=== PATIENT | female | born 1990 | race Caucasian/White ===

== ENCOUNTER → 2016-12-01 | Outpatient (CLI) | payer BC ==
[2015-02-07 11:00] VITALS: BP 113/72
--- NOTE | 2016-12-02 11:45 | RAD ---
HISTORY: Knee Pain. Study: Complete three-view series of the left knee joint. Comparison: None available. Findings: No acute fracture, subluxation, or dislocation is identified. There is mild medial compartment joint space loss which would imply a early degenerative change. The lateral radiograph fails to demonstra te a visible joint effusion. Patellofemoral compartment is unremarkable in appearance. No lytic or b one forming lesions are seen. No high-grade osteochondral defects are observed. No unexpected radiopa que foreign bodies are seen. There is no evidence for significant degenerative arthrosis. No focal suzy int erosions are seen, either. IMPRESSION: Mild medial knee compartment joint space height loss/early DJD. Reported By:
== END | disposition home or self-care (01) ==
LOC: RAD 16:52
PROVIDERS: ATTEND Nurse Practitioner Family
DX: M25.562 Pain in left knee (principal); M17.12 Unilateral primary osteoarthritis, left knee
CPT/HCPCS: 73564

== ENCOUNTER → 2017-03-01 | Outpatient (CLI) | payer BC ==
[2015-02-07 11:00] VITALS: BP 113/72
--- NOTE | 2017-03-01 09:36 | US ---
Examination: Abdominal ultrasound. Clinical History: Right upper quadrant pain, bloating. Technique: Real-time grayscale ultrasound was used to evaluate the upper abdomen. Comparison: 01/16/2015. Findings: The gallbladder is normal in appearance with no cholelithiasis, gallbladder wall thickening or perich olecystic fluid noted. The common bile duct measures 4 mm in diameter and is within normal limits. No intrahepatic biliary d uctal dilatation is noted. The liver is normal in echogenicity with no focal mass. The pancreas is unremarkable. The right kidney measures 8.3 cm in length and is normal in echogenicity with no focal mass, hydronep hrosis or nephrolithiasis noted. Impression: 1. Negative right upper quadrant abdominal ultrasound. Reported By:
== END ==
LOC: RAD 08:33
PROVIDERS: ATTEND Internal Medicine
DX: R10.11 Right upper quadrant pain (principal)
CPT/HCPCS: 76705

== ENCOUNTER 2017-03-04 15:50 | Emergency (ER) | payer BC ==
[2017-03-04 15:55] VITALS: BP 119/78; BMI 23.5
[2017-03-04] MEDS ORDERED: PHENERGAN INJ 25 MG IV ONE (16:13)
[2017-03-04] MEDS ORDERED: TORADOL 30 MG VIAL IVP ONE (16:13)
[2017-03-04] MEDS ORDERED: PHENERGAN INJ 25 MG ONE (16:21)
[2017-03-04] MEDS ORDERED: TORADOL 30 MG VIAL ONE (16:21)
[2017-03-04 16:35] LABS: BASOPHILS # (AUTO) 0.1 X10^3/uL (0.0-0.1); BASOPHILS % (AUTO) 0.8 % (0.2-1.0); EOSINOPHILS # (AUTO) 0.1 x10^3/uL (0.0-0.2); EOSINOPHILS % (AUTO) 0.9 % (0.9-2.9); HEMATOCRIT 36.8 % (36.0-47.0); HEMOGLOBIN 12.3 g/dL (12.0-16.0); LYMPHOCYTES # (AUTO) 2.6 X10^3/uL (1.3-2.9); LYMPHOCYTES % (AUTO) 22.6 % (21.0-51.0); MEAN CORPUSCULAR HEMOGLOBIN 28.9 pg (27.0-34.0); MEAN CORPUSCULAR HGB CONC 33.4 g/dL (33.0-35.0); MEAN CORPUSCULAR VOLUME 86.7 fL (80.0-100.0); MEAN PLATELET VOLUME 8.7 fL (7.4-11.0); MONOCYTES # (AUTO) 0.6 x10^3/uL (0.3-0.8); MONOCYTES % (AUTO) 5.6 % (0.0-13.0); NEUTROPHILS % (AUTO) 70.1 % (42.0-75.0); PLATELET COUNT 269 X10^3/uL (150.0-450.0); RED BLOOD COUNT 4.24 X10^6/uL (3.5-5.4); RED CELL DISTRIBUTION WIDTH 12.8 % (11.6-16.5); WHITE BLOOD COUNT 11.4 X10^3/uL (3.6-10.0)
[2017-03-04 17:00] LABS: BLOOD UREA NITROGEN 18 mg/dL (7-18); CALCIUM 9.3 mg/dL (8.5-10.1); CARBON DIOXIDE 28.5 mmol/L (21-32); CHLORIDE 101 mmol/L (98-107); COR NA(FOR HYPERGLY) 139 mmol/L (136-145); CREATININE 0.83 mg/dL (0.55-1.02); SODIUM 137 mmol/L (136-145); eGFR BLACK RACES > 60 (>60); eGFR NON BLACK RACES > 60 (>60)
[2017-03-04 18:02] LABS: AMYLASE 53 Units/L (25-115); LIPASE 178 Units/L (73-393)
--- NOTE | 2017-03-04 18:41 | DR.GENAD ---
HPI - PCP Primary Care Physician: jose - Complaint/Symptoms Chief Complaint Doctors Comments: Patient presents with headache of acute onset. She denies a history of trauma or fever. Additionallly patient c/o stomach pain that has been ongoing for a while. Denies history of colonic bowel disease or abdominal ulcers. Had vision checked three months ago. Chief Complaint:: patient stated she was working and had a very bad headache so bad she was vomited twice. 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 - Family History History of Family Medical Conditions: Yes Family Medical History: Diabetes Mellitus - Social History Does patient currently use any type of tobacco product: No Have you used tobacco products in the last 12 months: No Type of Tobacco Use: None Does any household member use tobacco: No Alcohol Use: None Do you use any recreational Drugs:: No Lives With: Family Lives Where: Home - infectious screening In the last 2 months have you had wt loss of >10#?: NO Have you had fever, night sweats or hemotysis?: No Have you traveled outside the country in the last 6 months?: No Isolation: Standard ROS - Review of Systems Constitutional: No Symptoms Reported Eyes: No Symptoms Reported ENTM: No Symptoms Reported Respiratoy: No Symptoms Reported Cardiovascular: No Symptoms Reported, Palpitations Gastrointestinal/Abdominal: No Symptoms Reported Genitourinary: No Symptoms Reported Neurological: No Symptoms Reported Musculoskeletal: No Symptoms Reported Integumentary: No Symptoms Reported Hematologic/Lymphatic: No Symptoms Reported Endocrine: No Symptoms Reported Psychiatric: No Symptoms Reported All Other Systems: Reviewed and Negative PE - Vital Signs Vitals: Temperature 98.9 F Pulse Rate 117 Respiratory Rate 18 Blood Pressure 119/78 O2 Sat by Pulse Oximetry 97 - General Limitations: No Limitations General Appearance: Alert, In No Apparent Distress - Head Head Exam: Normal Inspection, Atraumatic - Eyes Eye exam: Normal Appearance, PERRL, EOMI - ENT ENT Exam: Normal Exam External Ear Exam: Normal External Inspection TM/Canal Exam: Bilateral Normal Nose Exam: Normal Nose Exam Mouth Exam: Normal Inspection Throat Exam: Normal Inspection - Neck Neck Exam: Normal Inspection - Chest Chest Inspection: Normal Inspection - Respiratory Respiratory Exam: Normal Lung Sounds Bilat Respiratory Exam: Bilateral Clear to Auscultation - Cardiovascular Cardiovascular Exam: Regular Rate, Normal Rhythm - Abdominal Exam Abdominal Exam: Distention, Tenderness Abdominal Tenderness: Diffuse - Extremities Extremities Exam: Normal Inspection, Full ROM - Back Back Exam: Normal Inspection - Neurologic Neurological Exam: Alert, Oriented X3, CN II-XII Intact - Psychiatric Psychiatric Exam: Agitated Course - Reevaluation 1st: Improved ROR - Labs Reviewed Result Diagrams: 03/04/17 16:20 03/04/17 16:20 Laboratory: WBC 11.4 X10^3/uL (3.6-10.0) H 03/04/17 16:20 RBC 4.24 X10^6/uL (3.5-5.4) 03/04/17 16:20 Hgb 12.3 g/dL (12.0-16.0) 03/04/17 16:20 Hct 36.8 % (36.0-47.0) 03/04/17 16:20 MCV 86.7 fL (80.0-100.0) 03/04/17 16:20 MCH 28.9 pg (27.0-34.0) 03/04/17 16:20 MCHC 33.4 g/dL (33.0-35.0) 03/04/17 16:20 RDW 12.8 % (11.6-16.5) 03/04/17 16:20 Plt Count 269 X10^3/uL (150.0-450.0) 03/04/17 16:20 MPV 8.7 fL (7.4-11.0) 03/04/17 16:20 Neut % 70.1 % (42.0-75.0) 03/04/17 16:20 Lymph % 22.6 % (21.0-51.0) 03/04/17 16:20 [place] % 5.6 % (0.0-13.0) 03/04/17 16:20 Eos % 0.9 % (0.9-2.9) 03/04/17 16:20 Baso % 0.8 % (0.2-1.0) 03/04/17 16:20 Neut # 8.0 x10^3/uL (2.2-4.8) H 03/04/17 16:20 Lymph # 2.6 X10^3/uL (1.3-2.9) 03/04/17 16:20 [place] # 0.6 x10^3/uL (0.3-0.8) 03/04/17 16:20 Eos # 0.1 x10^3/uL (0.0-0.2) 03/04/17 16:20 Baso # 0.1 X10^3/uL (0.0-0.1) 03/04/17 16:20 Absolute Nucleated RBC 0.0 /100WBC 03/04/17 16:20 Sodium 137 mmol/L (136-145) 03/04/17 16:20 Corrected Sodium 139 mmol/L (136-145) 03/04/17 16:20 Potassium 4.1 mmol/L (3.5-5.1) 03/04/17 16:20 Chloride 101 mmol/L (98-107) 03/04/17 16:20 Carbon Dioxide 28.5 mmol/L (21-32) 03/04/17 16:20 BUN 18 mg/dL (7-18) 03/04/17 16:20 Creatinine 0.83 mg/dL (0.55-1.02) 03/04/17 16:20 Est GFR (MDRD) Af Amer > 60 (>60) 03/04/17 16:20 Est GFR (MDRD) Non-Af > 60 (>60) 03/04/17 16:20 Glucose 194 mg/dL (65-99) H 03/04/17 16:20 Calcium 9.3 mg/dL (8.5-10.1) 03/04/17 16:20 C-Reactive Protein 6.90 mg/L (0-3.0) H 03/04/17 16:20 Amylase 53 Units/L (25-115) 03/04/17 16:20 Lipase 178 Units/L (73-393) 03/04/17 16:20 Influenza Type A (PCR) Negative (NEGATIVE) 03/04/17 16:39 Influenza Type B (PCR) Negative (NEGATIVE) 03/04/17 16:39 - XRAY XRAY Interpreted by: Radiologist (Ct Sinus: negative, CT Abdo/pelv: negative) - Diagnosis Discharge Problem: Headache around the eyes Abdominal pain Qualifiers: Abdominal location: generalized Qualified Code(s): R10.84 - Generalized abdominal pain - Discharge Plan Condition: Stable - Follow ups/Referrals Follow ups/Referrals: MAMI DAVID [Primary Care Provider] - 3 days - Instructions
--- NOTE | 2017-03-04 19:22 | CT ---
HISTORY: Headache Study: CT of the sinuses Comparison: None Technique: Serial axial images were obtained through the sinuses without infusion of IV contrast. Cor onal sagittal reformatted images were also submitted. Findings: The frontal, ethmoid, maxillary, and sphenoid sinuses are well aerated without evidence of significan t mucosal thickening or air-fluid levels. The bony nasal septum is deviated slightly to the left. The ostiomeatal complexes appear to be patent bilaterally. IMPRESSION: Unremarkable sinus series. Reported By:
--- NOTE | 2017-03-04 20:23 | CT ---
CT abdomen and pelvis with contrast. Indication: Vomiting Comparison: None Technique: CT images of the abdomen and pelvis were obtained with IV contrast. No oral contrast was g iven. Automatic exposure control was utilized. Findings: The lung bases are essentially clear. No acute skeletal abnormality identified. The liver, gallbladder, spleen, stomach, duodenum, pancreas, adrenals, and kidneys are within normal limits. No significant bowel thickening or dilatation of the lower GI tract is observed. Normal appen lacey. Uterus and ovaries are noted. The urinary bladder and rectum are unremarkable. No free fluid or adenopathy identified. Impression: No acute process identified to explain patient's symptoms. Reported By:
== END 2017-03-04 21:44 | disposition home or self-care (01) ==
LOC: ER 15:57
DX: R51 Headache (principal); R10.84 Generalized abdominal pain
CPT/HCPCS: 36415; 70486; 74177; 80048; 82150; 83690; 85025; 86140; 87502; 96365; 96374; 96375; 99283; A4222; J1885; J2550

== ENCOUNTER 2017-03-29 10:52 | Inpatient (IN) | payer BC ==
[2017-03-29] MEDS ORDERED: SALINE 3% 15 ML NEB TX ONE (14:12)
[2017-03-29 14:13] LABS: BASOPHILS # (AUTO) 0.1 X10^3/uL (0.0-0.1); BASOPHILS % (AUTO) 0.8 % (0.2-1.0); EOSINOPHILS # (AUTO) 0.1 x10^3/uL (0.0-0.2); EOSINOPHILS % (AUTO) 1.7 % (0.9-2.9); HEMATOCRIT 36.7 % (36.0-47.0); HEMOGLOBIN 12.5 g/dL (12.0-16.0); LYMPHOCYTES # (AUTO) 2.8 X10^3/uL (1.3-2.9); MEAN CORPUSCULAR HEMOGLOBIN 29.2 pg (27.0-34.0); MEAN CORPUSCULAR HGB CONC 34.2 g/dL (33.0-35.0); MEAN CORPUSCULAR VOLUME 85.3 fL (80.0-100.0); MEAN PLATELET VOLUME 8.7 fL (7.4-11.0); MONOCYTES # (AUTO) 0.5 x10^3/uL (0.3-0.8); MONOCYTES % (AUTO) 5.7 % (0.0-13.0); NEUTROPHILS # (AUTO) 5.1 x10^3/uL (2.2-4.8); NEUTROPHILS % (AUTO) 58.8 % (42.0-75.0); PLATELET COUNT 309 X10^3/uL (150.0-450.0); RED CELL DISTRIBUTION WIDTH 12.7 % (11.6-16.5); WHITE BLOOD COUNT 8.6 X10^3/uL (3.6-10.0)
[2017-03-29] MEDS ORDERED: SALINE 3% 15 ML NEB TX NEB ONE (14:25)
--- NOTE | 2017-03-29 14:25 | RAD ---
Examination: Chest, PA and lateral views History: Bronchitis Comparison 10/29/2014 Findings: Continued normal heart size with clear lungs and pleural spaces. Impression: No change; no acute findings. Reported By:
[2017-03-29 14:27] LABS: ALANINE AMINOTRANSFERASE 23 Units/L (12-78); ALBUMIN 3.8 g/dL (3.4-5.0); ALKALINE PHOSPHATASE 126 Units/L (46-116); ASPARTATE AMINO TRANSFERASE 18 Units/L (15-37); BLOOD UREA NITROGEN 7 mg/dL (7-18); CALCIUM 9.2 mg/dL (8.5-10.1); CARBON DIOXIDE 27.8 mmol/L (21-32); CHLORIDE 104 mmol/L (98-107); COR NA(FOR HYPERGLY) 139 mmol/L (136-145); CREATININE 0.87 mg/dL (0.55-1.02); SODIUM 136 mmol/L (136-145); TOTAL PROTEIN 7.9 g/dL (6.4-8.2); eGFR BLACK RACES > 60 (>60); eGFR NON BLACK RACES > 60 (>60)
[2017-03-29] MEDS ORDERED: NS 1/2 1000 ML IV 1,000 ML IV ONE (14:40)
[2017-03-29] MEDS: NS 1/2 1000 ML IV 1,000 ML IV SCH (15:00)
[2017-03-29] MEDS: ZOSYN VIAL 4.5 GM 4.5 GM in NS 100 ML IV + SPIKE MINIBAG* 100 ML IV SCH ×2 (15:00→21:03)
[2017-03-29] MEDS: PROTONIX INJ 40 MG VIAL IVP SCH ×2 (15:00→21:01)
[2017-03-29 15:23] LABS: BILIRUBIN,URINE NEGATIVE (NEGATIVE); BLOOD/HEMOGLOBIN,URINE NEGATIVE (NEGATIVE); GLUCOSE, URINE 3+ (NEGATIVE); KETONES,URINE NEGATIVE (NEGATIVE); LEUKOCYTE ESTERASE ,URINE 1+ (NEGATIVE); NITRITES,URINE NEGATIVE (NEGATIVE); PROTEIN,URINE NEGATIVE (NEGATIVE); UROBILINOGEN,URINE NORMAL (NORMAL)
[2017-03-29 15:32] LABS: APPEARANCE,URINE CLEAR (CLEAR); BACTERIA,URINE NEGATIVE /HPF (NEGATIVE); COLOR,URINE YELLOW (YELLOW); RBC,URINE NONE SEEN /HPF (NEGATIVE); SQUAMOUS EPITHELIAL CELL,UR RARE /HPF (NEGATIVE)
[2017-03-29 16:04] VITALS: BMI 25.2
[2017-03-29] MEDS: ROBITUSSIN DM PO SCH ×2 (16:30→21:02)
[2017-03-29] MEDS: DUONEB 0.5 MG/3 MG NEB SCH ×2 (16:30→21:30)
[2017-03-29] MEDS: TYLENOL 325 MG TAB PO PRN ×2 (17:34→21:19)
--- NOTE | 2017-03-29 18:15 | DR.H&P ---
H&P - History & Physical for Day of: H&P Date: 03/29/17 - Chief Complaint Chief Complaint: cough, chest tightness, wheezing, fever - Allergies Allergies/Adverse Reactions: Allergies Allergy/AdvReac Type Severity Reaction Status Date / Time No Known Drug Allergies Allergy Verified 03/29/17 12:07 - History of Present Illness History of Present Illness: 26 WF DIRECT ADMIT FROM DR HERNANDEZ OFFICE WITH CO CONTINUED COUGH, CHEST TIGHTNESS AND WHEEZING EVEN AFTER TAKING ORAL ATBX AND BREATHING TREATMENTS. PT CO ABDOMINAL BLOATING AND NAUSEA. PT HAD PMH OF GERD, DM, HYPOTHYROID, ARTHRITIS. PLAN TO ADMIT FOR EVALUATION AND TREATEMENT OF ACUTE RESP ILLNESS, OBTAIN BLOOD AND SPUTUM CULTURES, IV ATBX AND RESP THERAPY. 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 - Family History Family Medical History: Diabetes Mellitus - Social History Does patient currently use any type of tobacco product: No Have you used tobacco products in the last 12 months: No Type of Tobacco Use: None Alcohol Use: None Drug Use: None - Medications Home Medications: Dicyclomine HCl [BENTYL CAP 10 MG *] 10 mg PO TID PRN 03/29/17 [History Confirmed 03/29/17] Levothyroxine Sodium 125 mcg PO DAILY 03/29/17 [History Confirmed 03/29/17] Linaclotide [Linzess] 145 mcg PO DAILY 03/29/17 [History Confirmed 03/29/17] Metformin HCl [GLUCOPHAGE 500 MG *] 500 mg PO BID 03/29/17 [History Confirmed ] Metoclopramide HCl 10 mg PO BID 03/29/17 [History Confirmed 03/29/17] Naproxen [Naproxen] 500 mg PO BID PRN 03/29/17 [History Confirmed 03/29/17] Pantoprazole Sodium 40 mg [PROTONIX 40 MG *] 40 mg PO BID 03/29/17 [History Confirmed 03/29/17] - Review of Systems Constitutional: Fever, Chills, Sweats Eyes: No Symptoms Reported ENT: No Symptoms Reported Respiratory: Cough, SOB with Excertion, Wheezing Cardiovascular: Palpitations Gastrointestinal: Nausea, Abdominal Pain Genitourinary: No Symptoms Reported Musculoskeletal: No Symptoms Reported Skin: No Symptoms Reported Neurological: No Symptoms Reported - Physical Exam Vital Signs: Temperature 98.0 F Pulse Rate [Right Radial] 103 Respiratory Rate 18 Blood Pressure [Left Arm] 111/68 Blood Pressure [Right Arm] 128/78 Blood Pressure 119/78 O2 Sat by Pulse Oximetry 99 Oriented: Normal Eyes: Normal Ear: Normal Nose: Normal Throat: Normal Respiratory: Rhonchi Throughout, RLL Diminished, LLL Diminished Cardiovascular: Tachycardia : Normal Auscultation: Bowel Sounds: Normal Tenderness: RUQ, Epigastric Skin: Normal Musculoskeletal: Normal Psychiatric: Anxiety Affect: Anxious Speech Pattern: Clear, Appropriate - Assessment/Plan (1) Acute bronchitis Status: Acute Plan: ADMIT, PNEUMONIA PROTOCOL. BLOOD AND SPUTUM CULTURES, FLU SWAB. IV ATBX , RESP THERAPY, STOOL STUDIES. ADMISSION LABS, CXR. RESUME HOME MEDS (2) Fever Status: Acute (3) Diabetes Status: Acute (4) Hypothyroid Status: Acute (5) Abdominal pain Status: Acute
[2017-03-29] MEDS: SNACK - Diabetic Appropriate PO SCH (20:00)
[2017-03-29] MEDS: REGLAN TAB 10 MG PO SCH (21:02)
[2017-03-29] MEDS: COLACE CAP 100 MG PO SCH ×2 (21:02)
[2017-03-29] MEDS: TUSSIONEX PENNKINETIC SUSP PO PRN (21:02)
[2017-03-29] MEDS: PULMICORT NEB TX 0.5 MG NEB SCH (21:30)
[2017-03-30] MEDS: DUONEB 0.5 MG/3 MG NEB SCH ×6 (00:40→21:20)
[2017-03-30] MEDS: NS 1/2 1000 ML IV 1,000 ML IV SCH ×3 (05:18→21:57)
[2017-03-30 06:06] LABS: ALANINE AMINOTRANSFERASE 24 Units/L (12-78); ALBUMIN 3.3 g/dL (3.4-5.0); ALKALINE PHOSPHATASE 93 Units/L (46-116); ASPARTATE AMINO TRANSFERASE 18 Units/L (15-37); BLOOD UREA NITROGEN 8 mg/dL (7-18); CALCIUM 8.2 mg/dL (8.5-10.1); CARBON DIOXIDE 28.4 mmol/L (21-32); CHLORIDE 103 mmol/L (98-107); COR CA(FOR HYPOALB) 8.8 mg/dL (8.5-10.1); COR NA(FOR HYPERGLY) 139 mmol/L (136-145); CREATININE 0.85 mg/dL (0.55-1.02); SODIUM 138 mmol/L (136-145); TOTAL PROTEIN 6.9 g/dL (6.4-8.2); eGFR BLACK RACES > 60 (>60); eGFR NON BLACK RACES > 60 (>60)
[2017-03-30 06:08] LABS: BASOPHILS # (AUTO) 0.1 X10^3/uL (0.0-0.1); BASOPHILS % (AUTO) 1.2 % (0.2-1.0); EOSINOPHILS # (AUTO) 0.2 x10^3/uL (0.0-0.2); EOSINOPHILS % (AUTO) 2.9 % (0.9-2.9); HEMATOCRIT 33.9 % (36.0-47.0); HEMOGLOBIN 11.5 g/dL (12.0-16.0); LYMPHOCYTES # (AUTO) 3.2 X10^3/uL (1.3-2.9); LYMPHOCYTES % (AUTO) 41.8 % (21.0-51.0); MEAN CORPUSCULAR HEMOGLOBIN 29.2 pg (27.0-34.0); MEAN CORPUSCULAR VOLUME 85.8 fL (80.0-100.0); MEAN PLATELET VOLUME 8.8 fL (7.4-11.0); MONOCYTES # (AUTO) 0.6 x10^3/uL (0.3-0.8); MONOCYTES % (AUTO) 7.6 % (0.0-13.0); NEUTROPHILS # (AUTO) 3.5 x10^3/uL (2.2-4.8); NEUTROPHILS % (AUTO) 46.5 % (42.0-75.0); PLATELET COUNT 260 X10^3/uL (150.0-450.0); RED BLOOD COUNT 3.95 X10^6/uL (3.5-5.4); RED CELL DISTRIBUTION WIDTH 12.8 % (11.6-16.5); WHITE BLOOD COUNT 7.6 X10^3/uL (3.6-10.0)
[2017-03-30] MEDS: ZOSYN VIAL 4.5 GM 4.5 GM in NS 100 ML IV + SPIKE MINIBAG* 100 ML IV SCH ×3 (06:16→21:55)
[2017-03-30] MEDS: ROBITUSSIN DM PO SCH ×4 (08:00→21:55)
[2017-03-30] MEDS: PROTONIX INJ 40 MG VIAL IVP SCH ×2 (08:00→21:55)
[2017-03-30] MEDS: TYLENOL 325 MG TAB PO PRN ×2 (08:00→15:55)
[2017-03-30] MEDS: SYNTHROID 125 mcg TAB PO SCH (08:01)
[2017-03-30] MEDS: REGLAN TAB 10 MG PO SCH ×2 (08:01→21:55)
[2017-03-30] MEDS: LEVAQUIN PREMIX IV 750 MG 750 MG/150 ML BAG IV SCH (08:03)
[2017-03-30 08:27] LABS: AMYLASE 40 Units/L (25-115); LIPASE 106 Units/L (73-393)
--- NOTE | 2017-03-30 08:48 | RAD ---
Indication: Pain Exam: Acute abdominal series. Technique: AP chest and supine upright views of the abdomen were obtained. Findings: The heart is normal. The pulmonary vessels are normal. The lungs are clear and the bones are intact. The gas pattern is unremarkable. No renal stones are seen. There is no free air. No abnormal calcific ations are seen . The bones are intact. There is moderate feces scattered in the colon. Impression: Mild constipation otherwise , unremarkable acute abdominal series. Reported By:
[2017-03-30] MEDS: PULMICORT NEB TX 0.5 MG NEB SCH ×2 (09:15→21:20)
[2017-03-30] MEDS: SOLU-Medrol 40 MG VIAL IVP SCH ×3 (11:10→21:56)
[2017-03-30] MEDS ORDERED: NS 1/2 1000 ML IV 1,000 ML IV ONE (13:32)
[2017-03-30] MEDS: HumuLIN R SUBCUT PRN ×2 (15:54→21:56)
[2017-03-30] MEDS: TUSSIONEX PENNKINETIC SUSP PO PRN (15:55)
[2017-03-30] MEDS: NORCO 5/325 MG TAB PO PRN (18:37)
[2017-03-30] MEDS: COLACE CAP 100 MG PO SCH (21:55)
[2017-03-30 22:42] LABS: STOOL FOR WBC POSITIVE (NEGATIVE)
[2017-03-30] MEDS: SNACK - Diabetic Appropriate PO SCH (23:40)
[2017-03-31] MEDS: DUONEB 0.5 MG/3 MG NEB SCH ×5 (01:47→22:26)
[2017-03-31] MEDS: ZOSYN VIAL 4.5 GM 4.5 GM in NS 100 ML IV + SPIKE MINIBAG* 100 ML IV SCH ×3 (06:15→21:57)
[2017-03-31] MEDS: SOLU-Medrol 40 MG VIAL IVP SCH (06:16)
[2017-03-31 06:18] LABS: BASOPHILS % (AUTO) 0.2 % (0.2-1.0); HEMATOCRIT 35.7 % (36.0-47.0); LYMPHOCYTES # (AUTO) 1.1 X10^3/uL (1.3-2.9); LYMPHOCYTES % (AUTO) 6.1 % (21.0-51.0); MEAN CORPUSCULAR HGB CONC 33.7 g/dL (33.0-35.0); MEAN CORPUSCULAR VOLUME 86.1 fL (80.0-100.0); MEAN PLATELET VOLUME 8.9 fL (7.4-11.0); MONOCYTES # (AUTO) 0.2 x10^3/uL (0.3-0.8); NEUTROPHILS # (AUTO) 16.5 x10^3/uL (2.2-4.8); NEUTROPHILS % (AUTO) 92.7 % (42.0-75.0); PLATELET COUNT 283 X10^3/uL (150.0-450.0); RED BLOOD COUNT 4.15 X10^6/uL (3.5-5.4); WHITE BLOOD COUNT 17.8 X10^3/uL (3.6-10.0)
[2017-03-31] MEDS: HumuLIN R SUBCUT PRN ×2 (06:19→12:34)
[2017-03-31 06:29] LABS: BAND NEUTROPHILS % 1 % (0-10); PLATELET MORPHOLOGY COMMENT NORMAL (NORMAL)
[2017-03-31 06:35] LABS: ALANINE AMINOTRANSFERASE 25 Units/L (12-78); ALBUMIN 3.7 g/dL (3.4-5.0); ALKALINE PHOSPHATASE 97 Units/L (46-116); ASPARTATE AMINO TRANSFERASE 12 Units/L (15-37); BLOOD UREA NITROGEN 10 mg/dL (7-18); CALCIUM 9.2 mg/dL (8.5-10.1); CARBON DIOXIDE 24.9 mmol/L (21-32); CHLORIDE 100 mmol/L (98-107); COR NA(FOR HYPERGLY) 141 mmol/L (136-145); CREATININE 0.97 mg/dL (0.55-1.02); SODIUM 136 mmol/L (136-145); TOTAL PROTEIN 7.9 g/dL (6.4-8.2); eGFR BLACK RACES > 60 (>60); eGFR NON BLACK RACES > 60 (>60)
[2017-03-31] MEDS: PULMICORT NEB TX 0.5 MG NEB SCH ×2 (09:08→22:26)
[2017-03-31] MEDS: PROTONIX INJ 40 MG VIAL IVP SCH ×2 (09:31→21:23)
[2017-03-31] MEDS: LEVAQUIN PREMIX IV 750 MG 750 MG/150 ML BAG IV SCH (09:31)
[2017-03-31] MEDS: REGLAN TAB 10 MG PO SCH ×2 (09:32→21:23)
[2017-03-31] MEDS: SYNTHROID 125 mcg TAB PO SCH (09:32)
[2017-03-31] MEDS: ROBITUSSIN DM PO SCH ×4 (09:32→21:22)
[2017-03-31] MEDS: NORCO 5/325 MG TAB PO PRN ×2 (10:00→18:12)
[2017-03-31] MEDS ORDERED: SUPRANE IN ONE (10:46)
[2017-03-31] MEDS ORDERED: VERSED ONE (10:46)
[2017-03-31] MEDS ORDERED: QUELICIN (OR ANECTINE) ONE (10:46)
[2017-03-31] MEDS ORDERED: ROBINUL ONE (10:46)
[2017-03-31] MEDS ORDERED: LTA KIT LIDOCAINE 4% ONE (10:46)
[2017-03-31] MEDS ORDERED: DIPRIVAN VIAL ONE (10:46)
[2017-03-31] MEDS ORDERED: NORCURON INJ 10 MG VIAL ONE (10:46)
[2017-03-31] MEDS ORDERED: XYLOCAINE 2 % (PLAIN) ONE (10:46)
[2017-03-31] MEDS ORDERED: ZOFRAN INJ 4 MG VIAL ONE (10:46)
[2017-03-31] MEDS ORDERED: NEOSTIGMINE INJ ONE (10:46)
--- NOTE | 2017-03-31 12:22 | NM ---
HISTORY: Right upper quadrant pain, nausea, vomiting and food intolerance. Study: Nuclear medicine HIDA scan with ejection fraction Comparison: None. Technique: Multiple scintigraphic images of the abdomen were obtained the intravenous administration of 5.3 mCi of technetium labeled Choletec. Following distention of the gallbladder with radiotracer, 8 oz of Ensure plus was administered orally . An estimated gallbladder ejection fraction was calculated based on the resulting physiologic respo nse. Findings: Homogeneous uptake of radiotracer is seen throughout the liver. The intrabiliary ductal system is ob served normally. The common hepatic and common bile duct are unremarkable with normal biliary-bowel transit. The gallbladder is observed to fill normally. After administration of Ensure, a gallbladder ejection fraction of 11.9% (normal > 35%) is observed. IMPRESSION: 1. Normal hepatobiliary imaging scan. 2. Abnormal gallbladder ejection fraction of 11.9%. Clinical correlation for cholecystitis versus ga llbladder dyskinesia is recommended. Reported By:
--- NOTE | 2017-03-31 13:07 | PCM.PROG ---
Progress Note - Progress Note for Day of Date: 03/30/17 - Subjective Subjective: patient is a 26-year-old white female who was a direct admit when they go with flulike illness, bronchitis spelled out patient treatment, upper abdominal pain with nausea and vomiting. Patient has been treated with IV antibiotics and respiratory therapy for upper respiratory illness. Patient does report improving cough however continues with nausea and upper abdominal pain. Patient has previously had a gallbladder ultrasound, plan to order a HIDA scan every morning and continue current medication regimen. - Past Medical Family Social History Past Med/Fam/Surg Hx: No changes since H&P Allergies: Allergies No Known Drug Allergies Allergy (Verified 03/29/17 12:07) - Review of Systems ROS: No change since H&P - Vital Signs and I&O's Vital Signs: Temperature 97.7 F Pulse Rate [Right Radial] 77 Pulse Rate 111 Respiratory Rate 20 Blood Pressure [Left Arm] 114/63 Blood Pressure [Right Arm] 128/78 Blood Pressure 119/78 O2 Sat by Pulse Oximetry 99 Intake and Output: Intake & Output 03/29/17 03/30/17 03/31/17 04/01/17 11:59 11:59 11:59 11:59 Intake Total 990 2435 Output Total 500 2600 Balance 490 -165 - Physical Exam Oriented: Normal Eyes: Normal Ear: Normal Nose: Normal Throat: Normal Cardiovascular: Tachycardia : Normal Auscultation: Bowel Sounds: Normal Tenderness: RUQ, Epigastric Skin: Normal Musculoskeletal: Normal Psychiatric: Anxiety Affect: Anxious Speech Pattern: Clear, Appropriate - Laboratory and Diagnostics Result Diagrams: 03/31/17 05:30 03/31/17 05:30 Labs: 03/30/17 21:20 Stool - Final Laboratory WBC 17.8 X10^3/uL (3.6-10.0) H D 03/31/17 05:30 RBC 4.15 X10^6/uL (3.5-5.4) 03/31/17 05:30 Hgb 12.0 g/dL (12.0-16.0) 03/31/17 05:30 Hct 35.7 % (36.0-47.0) L 03/31/17 05:30 MCV 86.1 fL (80.0-100.0) 03/31/17 05:30 MCH 29.0 pg (27.0-34.0) 03/31/17 05:30 MCHC 33.7 g/dL (33.0-35.0) 03/31/17 05:30 RDW 13.0 % (11.6-16.5) 03/31/17 05:30 Plt Count 283 X10^3/uL (150.0-450.0) 03/31/17 05:30 Plt Count Comment Adequate (ADEQUATE) 03/31/17 05:30 MPV 8.9 fL (7.4-11.0) 03/31/17 05:30 Neut % 92.7 % (42.0-75.0) H 03/31/17 05:30 Lymph % 6.1 % (21.0-51.0) L 03/31/17 05:30 [place] % 1.0 % (0.0-13.0) 03/31/17 05:30 Eos % 0.0 % (0.9-2.9) L 03/31/17 05:30 Baso % 0.2 % (0.2-1.0) 03/31/17 05:30 Neut # 16.5 x10^3/uL (2.2-4.8) H 03/31/17 05:30 Lymph # 1.1 X10^3/uL (1.3-2.9) L 03/31/17 05:30 [place] # 0.2 x10^3/uL (0.3-0.8) L 03/31/17 05:30 Eos # 0.0 x10^3/uL (0.0-0.2) 03/31/17 05:30 Baso # 0.0 X10^3/uL (0.0-0.1) 03/31/17 05:30 Absolute Nucleated RBC 0.0 /100WBC 03/31/17 05:30 Total Counted 100 03/31/17 05:30 Neutrophils % (Manual) 89 % (39-76) H 03/31/17 05:30 Band Neutrophils % 1 % (0-10) 03/31/17 05:30 Lymphocytes % (Manual) 7 % (13-43) L 03/31/17 05:30 Monocytes % (Manual) 3 % (4-9) L 03/31/17 05:30 Plt Morphology Comment Normal (NORMAL) 03/31/17 05:30 RBC Morphology Normal (NORMAL) 03/31/17 05:30 Sodium 136 mmol/L (136-145) 03/31/17 05:30 Corrected Sodium 141 mmol/L (136-145) 03/31/17 05:30 Potassium 4.4 mmol/L (3.5-5.1) 03/31/17 05:30 Chloride 100 mmol/L (98-107) 03/31/17 05:30 Carbon Dioxide 24.9 mmol/L (21-32) 03/31/17 05:30 BUN 10 mg/dL (7-18) 03/31/17 05:30 Creatinine 0.97 mg/dL (0.55-1.02) 03/31/17 05:30 Est GFR (MDRD) Af Amer > 60 (>60) 03/31/17 05:30 Est GFR (MDRD) Non-Af > 60 (>60) 03/31/17 05:30 Glucose 296 mg/dL (65-99) H 03/31/17 05:30 POC Glucose (mg/dL) 317 mg/dL (65-99) H 03/31/17 12:19 Calcium 9.2 mg/dL (8.5-10.1) 03/31/17 05:30 Corrected Calcium TNP 03/31/17 05:30 Total Bilirubin 0.30 mg/dL (0.2-1.0) 03/31/17 05:30 AST 12 Units/L (15-37) L 03/31/17 05:30 ALT 25 Units/L (12-78) 03/31/17 05:30 Alkaline Phosphatase 97 Units/L (46-116) 03/31/17 05:30 Total Protein 7.9 g/dL (6.4-8.2) 03/31/17 05:30 Albumin 3.7 g/dL (3.4-5.0) 03/31/17 05:30 Globulin 4.2 g/dL (2.5-4.5) 03/31/17 05:30 Albumin/Globulin Ratio 0.9 Ratio (1.1-2.1) L 03/31/17 05:30 Amylase 40 Units/L (25-115) 03/30/17 05:27 Lipase 106 Units/L (73-393) 03/30/17 05:27 Specimen Type Clean catch urine 03/29/17 15:12 Urine Color Yellow (YELLOW) 03/29/17 15:12 Urine Appearance Clear (CLEAR) 03/29/17 15:12 Urine pH 8.0 (5.0 - 8.0) 03/29/17 15:12 Ur Specific [place] 1.015 (1.000-1.030) 03/29/17 15:12 Urine Protein Negative (NEGATIVE) 03/29/17 15:12 Urine Glucose (UA) 3+ (NEGATIVE) 03/29/17 15:12 Urine Ketones Negative (NEGATIVE) 03/29/17 15:12 Urine Occult Blood Negative (NEGATIVE) 03/29/17 15:12 Urine Nitrite Negative (NEGATIVE) 03/29/17 15:12 Urine Bilirubin Negative (NEGATIVE) 03/29/17 15:12 Urine Urobilinogen Normal (NORMAL) 03/29/17 15:12 Ur Leukocyte Esterase 1+ (NEGATIVE) 03/29/17 15:12 Urine RBC None seen /HPF (NEGATIVE) 03/29/17 15:12 Urine WBC None seen /HPF (NEGATIVE) 03/29/17 15:12 Ur Squamous Epith Cells Rare /HPF (NEGATIVE) 03/29/17 15:12 Urine Bacteria Negative /HPF (NEGATIVE) 03/29/17 15:12 Ur Culture Indicated? No/not indicated 03/29/17 15:12 Stool for White Cells Positive (NEGATIVE) A 03/30/17 21:20 Influenza Type A (PCR) Negative (NEGATIVE) 03/29/17 18:19 Influenza Type B (PCR) Negative (NEGATIVE) 03/29/17 18:19 - Plan (1) Acute bronchitis Status: Acute Plan: CONTINUE PNEUMONIA PROTOCOL. BLOOD AND SPUTUM CULTURES, FLU SWAB NEGATIVE. IV ATBX, RESP THERAPY, STOOL STUDIES PENDING. AM LABS, CXR. BLOOD SUGAR CONTROL (2) Fever Status: Acute (3) Diabetes Status: Acute (4) Hypothyroid Status: Acute (5) Abdominal pain Status: Acute Qualifiers: Abdominal location: right upper quadrant Qualified Code(s): R10.11 - Right upper quadrant pain Plan: AM HIDA SCAN, PPI THERAPY
--- NOTE | 2017-03-31 13:12 | PCM.PROG ---
Progress Note - Progress Note for Day of Date: 03/31/17 - Subjective Subjective: patient is a 26-year-old white female who was a direct admit when they go with flulike illness, bronchitis spelled out patient treatment, upper abdominal pain with nausea and vomiting. Patient has been treated with IV antibiotics and respiratory therapy for upper respiratory illness. Patient does report improving cough however continues with nausea and upper abdominal pain. Patient has previously had a gallbladder ultrasound, pt is NPO for a HIDA scan this am - Past Medical Family Social History Past Med/Fam/Surg Hx: No changes since H&P Allergies: Allergies No Known Drug Allergies Allergy (Verified 03/29/17 12:07) - Review of Systems ROS: No change since H&P - Vital Signs and I&O's Vital Signs: Temperature 97.7 F Pulse Rate [Right Radial] 77 Pulse Rate 111 Respiratory Rate 20 Blood Pressure [Left Arm] 114/63 Blood Pressure [Right Arm] 128/78 Blood Pressure 119/78 O2 Sat by Pulse Oximetry 99 Intake and Output: Intake & Output 03/29/17 03/30/17 03/31/17 04/01/17 11:59 11:59 11:59 11:59 Intake Total 990 2435 Output Total 500 2600 Balance 490 -165 - Physical Exam Oriented: Normal Eyes: Normal Ear: Normal Nose: Normal Throat: Normal Respiratory: Normal Cardiovascular: Tachycardia : Normal Auscultation: Bowel Sounds: Normal Tenderness: RUQ, Epigastric Skin: Normal Musculoskeletal: Normal Psychiatric: Anxiety Affect: Anxious Speech Pattern: Clear, Appropriate - Laboratory and Diagnostics Result Diagrams: 03/31/17 05:30 03/31/17 05:30 Labs: 03/30/17 21:20 Stool - Final Laboratory WBC 17.8 X10^3/uL (3.6-10.0) H D 03/31/17 05:30 RBC 4.15 X10^6/uL (3.5-5.4) 03/31/17 05:30 Hgb 12.0 g/dL (12.0-16.0) 03/31/17 05:30 Hct 35.7 % (36.0-47.0) L 03/31/17 05:30 MCV 86.1 fL (80.0-100.0) 03/31/17 05:30 MCH 29.0 pg (27.0-34.0) 03/31/17 05:30 MCHC 33.7 g/dL (33.0-35.0) 03/31/17 05:30 RDW 13.0 % (11.6-16.5) 03/31/17 05:30 Plt Count 283 X10^3/uL (150.0-450.0) 03/31/17 05:30 Plt Count Comment Adequate (ADEQUATE) 03/31/17 05:30 MPV 8.9 fL (7.4-11.0) 03/31/17 05:30 Neut % 92.7 % (42.0-75.0) H 03/31/17 05:30 Lymph % 6.1 % (21.0-51.0) L 03/31/17 05:30 George % 1.0 % (0.0-13.0) 03/31/17 05:30 Eos % 0.0 % (0.9-2.9) L 03/31/17 05:30 Baso % 0.2 % (0.2-1.0) 03/31/17 05:30 Neut # 16.5 x10^3/uL (2.2-4.8) H 03/31/17 05:30 Lymph # 1.1 X10^3/uL (1.3-2.9) L 03/31/17 05:30 George # 0.2 x10^3/uL (0.3-0.8) L 03/31/17 05:30 Eos # 0.0 x10^3/uL (0.0-0.2) 03/31/17 05:30 Baso # 0.0 X10^3/uL (0.0-0.1) 03/31/17 05:30 Absolute Nucleated RBC 0.0 /100WBC 03/31/17 05:30 Total Counted 100 03/31/17 05:30 Neutrophils % (Manual) 89 % (39-76) H 03/31/17 05:30 Band Neutrophils % 1 % (0-10) 03/31/17 05:30 Lymphocytes % (Manual) 7 % (13-43) L 03/31/17 05:30 Monocytes % (Manual) 3 % (4-9) L 03/31/17 05:30 Plt Morphology Comment Normal (NORMAL) 03/31/17 05:30 RBC Morphology Normal (NORMAL) 03/31/17 05:30 Sodium 136 mmol/L (136-145) 03/31/17 05:30 Corrected Sodium 141 mmol/L (136-145) 03/31/17 05:30 Potassium 4.4 mmol/L (3.5-5.1) 03/31/17 05:30 Chloride 100 mmol/L (98-107) 03/31/17 05:30 Carbon Dioxide 24.9 mmol/L (21-32) 03/31/17 05:30 BUN 10 mg/dL (7-18) 03/31/17 05:30 Creatinine 0.97 mg/dL (0.55-1.02) 03/31/17 05:30 Est GFR (MDRD) Af Amer > 60 (>60) 03/31/17 05:30 Est GFR (MDRD) Non-Af > 60 (>60) 03/31/17 05:30 Glucose 296 mg/dL (65-99) H 03/31/17 05:30 POC Glucose (mg/dL) 317 mg/dL (65-99) H 03/31/17 12:19 Calcium 9.2 mg/dL (8.5-10.1) 03/31/17 05:30 Corrected Calcium TNP 03/31/17 05:30 Total Bilirubin 0.30 mg/dL (0.2-1.0) 03/31/17 05:30 AST 12 Units/L (15-37) L 03/31/17 05:30 ALT 25 Units/L (12-78) 03/31/17 05:30 Alkaline Phosphatase 97 Units/L (46-116) 03/31/17 05:30 Total Protein 7.9 g/dL (6.4-8.2) 03/31/17 05:30 Albumin 3.7 g/dL (3.4-5.0) 03/31/17 05:30 Globulin 4.2 g/dL (2.5-4.5) 03/31/17 05:30 Albumin/Globulin Ratio 0.9 Ratio (1.1-2.1) L 03/31/17 05:30 Amylase 40 Units/L (25-115) 03/30/17 05:27 Lipase 106 Units/L (73-393) 03/30/17 05:27 Specimen Type Clean catch urine 03/29/17 15:12 Urine Color Yellow (YELLOW) 03/29/17 15:12 Urine Appearance Clear (CLEAR) 03/29/17 15:12 Urine pH 8.0 (5.0 - 8.0) 03/29/17 15:12 Ur Specific [place] 1.015 (1.000-1.030) 03/29/17 15:12 Urine Protein Negative (NEGATIVE) 03/29/17 15:12 Urine Glucose (UA) 3+ (NEGATIVE) 03/29/17 15:12 Urine Ketones Negative (NEGATIVE) 03/29/17 15:12 Urine Occult Blood Negative (NEGATIVE) 03/29/17 15:12 Urine Nitrite Negative (NEGATIVE) 03/29/17 15:12 Urine Bilirubin Negative (NEGATIVE) 03/29/17 15:12 Urine Urobilinogen Normal (NORMAL) 03/29/17 15:12 Ur Leukocyte Esterase 1+ (NEGATIVE) 03/29/17 15:12 Urine RBC None seen /HPF (NEGATIVE) 03/29/17 15:12 Urine WBC None seen /HPF (NEGATIVE) 03/29/17 15:12 Ur Squamous Epith Cells Rare /HPF (NEGATIVE) 03/29/17 15:12 Urine Bacteria Negative /HPF (NEGATIVE) 03/29/17 15:12 Ur Culture Indicated? No/not indicated 03/29/17 15:12 Stool for White Cells Positive (NEGATIVE) A 03/30/17 21:20 Influenza Type A (PCR) Negative (NEGATIVE) 03/29/17 18:19 Influenza Type B (PCR) Negative (NEGATIVE) 03/29/17 18:19 - Plan (1) Acute bronchitis Status: Acute Plan: CONTINUE PNEUMONIA PROTOCOL. BLOOD AND SPUTUM CULTURES, FLU SWAB NEGATIVE. IV ATBX, RESP THERAPY, STOOL STUDIES PENDING. AM LABS, CXR. BLOOD SUGAR CONTROL (2) Fever Status: Acute (3) Diabetes Status: Acute (4) Hypothyroid Status: Acute (5) Abdominal pain Status: Acute Qualifiers: Abdominal location: right upper quadrant Qualified Code(s): R10.11 - Right upper quadrant pain Plan: HIDA SCAN, PPI THERAPY, nausea and pain control. surgical consult with abnormal gb ef results
[2017-03-31] MEDS ORDERED: NS 1000 ML 1,000 ML ONE (16:15)
[2017-03-31] MEDS ORDERED: FENTANYL INJ 250 mcg ONE (16:28)
[2017-03-31] MEDS ORDERED: NS IRRIGATION 1000 ML 1,000 ML IR ONE (16:43)
[2017-03-31] MEDS ORDERED: DILAUDID INJ ONE (17:34)
[2017-03-31] MEDS ORDERED: PHENERGAN INJ 25 MG IVP PRN (17:36)
[2017-03-31] MEDS ORDERED: ZOFRAN INJ 4 MG VIAL IVP PRN ×2 (17:36→21:12)
[2017-03-31] MEDS ORDERED: REGLAN INJ 10 MG VIAL IVP PRN (17:36)
[2017-03-31] MEDS ORDERED: BENADRYL INJ 50 MG VIAL IVP PRN (17:36)
[2017-03-31] MEDS: DILAUDID INJ IVP PRN ×3 (17:40→17:50)
[2017-03-31] MEDS: D5 1/2 NS 1000 ML 1,000 ML IV SCH (18:13)
[2017-03-31] MEDS: NS 1/2 1000 ML IV 1,000 ML IV SCH ×2 (20:11→21:36)
[2017-03-31] MEDS: SNACK - Diabetic Appropriate PO SCH (20:12)
[2017-03-31] MEDS ORDERED: DILAUDID INJ IVP PRN (21:12)
[2017-03-31] MEDS: COLACE CAP 100 MG PO SCH (21:23)
[2017-03-31] MEDS: PROTONIX TAB 40 MG PO SCH (21:24)
[2017-04-01] MEDS: DUONEB 0.5 MG/3 MG NEB SCH ×4 (01:32→09:24)
[2017-04-01] MEDS: NORCO 5/325 MG TAB PO PRN ×3 (03:25→10:58)
[2017-04-01] MEDS: D5 1/2 NS 1000 ML 1,000 ML IV SCH (03:26)
[2017-04-01] MEDS: ZOSYN VIAL 4.5 GM 4.5 GM in NS 100 ML IV + SPIKE MINIBAG* 100 ML IV SCH (06:21)
[2017-04-01 06:40] LABS: BASOPHILS # (AUTO) 0.1 X10^3/uL (0.0-0.1); BASOPHILS % (AUTO) 0.6 % (0.2-1.0); EOSINOPHILS % (AUTO) 0.1 % (0.9-2.9); HEMATOCRIT 32.9 % (36.0-47.0); HEMOGLOBIN 11.1 g/dL (12.0-16.0); LYMPHOCYTES # (AUTO) 3.4 X10^3/uL (1.3-2.9); MEAN CORPUSCULAR HEMOGLOBIN 29.1 pg (27.0-34.0); MEAN CORPUSCULAR HGB CONC 33.6 g/dL (33.0-35.0); MEAN CORPUSCULAR VOLUME 86.5 fL (80.0-100.0); MEAN PLATELET VOLUME 8.3 fL (7.4-11.0); MONOCYTES # (AUTO) 0.7 x10^3/uL (0.3-0.8); MONOCYTES % (AUTO) 5.2 % (0.0-13.0); NEUTROPHILS # (AUTO) 8.8 x10^3/uL (2.2-4.8); NEUTROPHILS % (AUTO) 68.1 % (42.0-75.0); PLATELET COUNT 257 X10^3/uL (150.0-450.0); RED CELL DISTRIBUTION WIDTH 13.1 % (11.6-16.5)
[2017-04-01 07:01] LABS: ALANINE AMINOTRANSFERASE 29 Units/L (12-78); ALBUMIN 3.1 g/dL (3.4-5.0); ALKALINE PHOSPHATASE 72 Units/L (46-116); ASPARTATE AMINO TRANSFERASE 19 Units/L (15-37); BLOOD UREA NITROGEN 11 mg/dL (7-18); CALCIUM 8.1 mg/dL (8.5-10.1); CARBON DIOXIDE 29.4 mmol/L (21-32); CHLORIDE 102 mmol/L (98-107); COR CA(FOR HYPOALB) 8.8 mg/dL (8.5-10.1); COR NA(FOR HYPERGLY) 140 mmol/L (136-145); CREATININE 0.85 mg/dL (0.55-1.02); SODIUM 138 mmol/L (136-145); TOTAL PROTEIN 6.7 g/dL (6.4-8.2); eGFR BLACK RACES > 60 (>60); eGFR NON BLACK RACES > 60 (>60)
[2017-04-01 08:20] VITALS: BP 102/67
[2017-04-01] MEDS: PROTONIX TAB 40 MG PO SCH (08:41)
[2017-04-01] MEDS: REGLAN TAB 10 MG PO SCH (08:43)
[2017-04-01] MEDS: SYNTHROID 125 mcg TAB PO SCH (08:43)
[2017-04-01] MEDS: ROBITUSSIN DM PO SCH (08:43)
[2017-04-01] MEDS: PULMICORT NEB TX 0.5 MG NEB SCH (09:00)
[2017-04-01] MEDS: LEVAQUIN PREMIX IV 750 MG 750 MG/150 ML BAG IV SCH (09:36)
== END 2017-04-01 11:11 | disposition home or self-care (01) | DRG 982 ==
LOC: OBS 10:52 → UNDOADMIN 10:52 → OBS 11:40
PROVIDERS: ADMIT Internal Medicine; ATTEND Internal Medicine
PROC: 0DNU4ZZ Release Omentum, Percutaneous Endoscopic Approach (ICD-10-PCS; 2017-03-31)
PROC: 0FT44ZZ Resection of Gallbladder, Percutaneous Endoscopic Approach (ICD-10-PCS; principal; 2017-03-31 16:00)
DX: J20.8 Acute bronchitis due to other specified organisms (principal); K21.9 Gastro-esophageal reflux disease without esophagitis; E11.65 Type 2 diabetes mellitus with hyperglycemia; E03.8 Other specified hypothyroidism; M13.89 Other specified arthritis, multiple sites; R10.84 Generalized abdominal pain; R10.11 Right upper quadrant pain; R11.2 Nausea with vomiting, unspecified; K59.09 Other constipation; K90.49 Malabsorption due to intolerance, not elsewhere classified; K66.0 Peritoneal adhesions (postprocedural) (postinfection); K81.0 Acute cholecystitis
CPT/HCPCS: 36415; 71046; 74022; 78227; 80053; 81001; 82150; 83630; 83690; 85025; 87040; 87045; 87338; 87427; 87502; 87899; 94640; 94760; A4216; A4222; A9537; C9113; J0330; J1815; J1956; J2001; J2250; J2405; J2543; J2710; J2920; J3010; J3490; J7042; J7620; J7626

== ENCOUNTER → 2017-05-14 | Outpatient (CLI) | payer BC ==
--- NOTE | 2017-05-14 18:56 | US ---
History: Chronic pelvic pain Study: Transvaginal ultrasound Comparison: None Findings: The uterus measures 8.56 x 4.07 x 3.71 cm with a 1.71 x 1.08 x 1.65 cm fundal fibroid. The endometrium measures 7.5 mm thickness. The ovaries could not be found by the technologist. The left ovary measures 3.21 x 1.78 cm. There is no free fluid or abnormal adnexal mass demonstrated. Impression: 1.7 cm maximum diameter ventral fundal uterine fibroid that appears that may be sub seros al. Reported By:
== END ==
LOC: RAD 11:37
PROVIDERS: ATTEND Obstetrics & Gynecology
DX: R10.2 Pelvic and perineal pain (principal); F32.81 Premenstrual dysphoric disorder
CPT/HCPCS: 76830

== ENCOUNTER 2017-10-19 16:55 | Inpatient (IN) ==
--- NOTE | 2017-10-19 18:06 | DR.H&P ---
H&P - History & Physical for Day of: H&P Date: 10/19/17 - Chief Complaint Chief Complaint: CCC, FEVER, ELEVATED BLOOD SUGAR - History of Present Illness History of Present Illness: PT IS 27 WF DIRECT ADMIT FROM DR HERNANDEZ OFFICE WITH CO CCC X 1 WEEK HAS TAKEN ROCEPHIN 1GM IM AND TAKEN ROUND OF AUGMENTIN. WITHOUT IMPROVEMENT, ELEVATED BLOOD SUGAR WITH CO FRYE AND NAUSEA. PT STATES SHE TAKING RX MEDICATION. 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 - Family History Family Medical History: Diabetes Mellitus - Social History Does patient currently use any type of tobacco product: No Have you used tobacco products in the last 12 months: No Type of Tobacco Use: None Does any household member use tobacco: No Alcohol Use: None Drug Use: None - Medications Home Medications: No Known Drug Allergies Allergy (Verified 03/29/17 12:07) - Review of Systems Constitutional: Fever, Chills, Weakness Eyes: No Symptoms Reported ENT: Nose Congestion, Throat Pain Respiratory: Cough, Sputum, Wheezing Cardiovascular: No Symptoms Reported Gastrointestinal: Nausea Genitourinary: No Symptoms Reported Musculoskeletal: Back Pain Skin: No Symptoms Reported Neurological: No Symptoms Reported - Physical Exam Vital Signs: Blood Pressure [Left Arm] 102/67 Blood Pressure [Right Arm] 94/57 Blood Pressure 102/67 Oriented: Normal Eyes: Normal Ear: Normal Nose: Discharge Throat: Normal Respiratory: Rhonchi Throughout, RLL Diminished, LLL Diminished Cardiovascular: Tachycardia : Normal Auscultation: Bowel Sounds: Normal Palpation: Normal Tenderness: Epigastric Skin: Normal Musculoskeletal: Normal Psychiatric: Anxiety Affect: Anxious Speech Pattern: Clear, Appropriate - Assessment/Plan (1) Acute bronchitis Status: Acute Plan: ADMIT, ADMISSION LABS CBC CMP. URINE ACETONE, UA. CXR SPUTUM CULTURE. RESP THERAPY. IV HYDRATION, VERIFY HOME MEDS. BS CONTROL, SSI (2) Fever Status: Acute (3) Diabetes Status: Acute (4) Hypothyroid Status: Acute - Allergies Allergies/Adverse Reactions: Allergies Allergy/AdvReac Type Severity Reaction Status Date / Time No Known Drug Allergies Allergy Verified 03/29/17 12:07
[2017-10-19 18:18] LABS: BASOPHILS # (AUTO) 0.1 X10^3/uL (0.0-0.1); EOSINOPHILS # (AUTO) 0.1 x10^3/uL (0.0-0.2); EOSINOPHILS % (AUTO) 1.4 % (0.9-2.9); HEMATOCRIT 43.8 % (36.0-47.0); LYMPHOCYTES # (AUTO) 2.9 X10^3/uL (1.3-2.9); LYMPHOCYTES % (AUTO) 29.8 % (21.0-51.0); MEAN CORPUSCULAR HEMOGLOBIN 29.3 pg (27.0-34.0); MEAN CORPUSCULAR HGB CONC 34.2 g/dL (33.0-35.0); MEAN CORPUSCULAR VOLUME 85.5 fL (80.0-100.0); MEAN PLATELET VOLUME 8.5 fL (7.4-11.0); MONOCYTES # (AUTO) 0.5 x10^3/uL (0.3-0.8); MONOCYTES % (AUTO) 5.2 % (0.0-13.0); NEUTROPHILS # (AUTO) 6.1 x10^3/uL (2.2-4.8); NEUTROPHILS % (AUTO) 62.6 % (42.0-75.0); PLATELET COUNT 286 X10^3/uL (150.0-450.0); RED BLOOD COUNT 5.12 X10^6/uL (3.5-5.4); RED CELL DISTRIBUTION WIDTH 13.3 % (11.6-16.5); WHITE BLOOD COUNT 9.8 X10^3/uL (3.6-10.0)
[2017-10-19] MEDS: NS 1000 ML 1,000 ML IV SCH (18:36)
--- NOTE | 2017-10-19 18:36 | RAD ---
HISTORY: Cough with shortness of breath Study: Single view of the chest. Comparison: None. Findings: The cardiomediastinal silhouette is normal. No focal consolidations, pleural effusions or pneumothora x. Osseous structures demonstrate no acute abnormality. IMPRESSION: 1. No acute cardiopulmonary process. Reported By:
[2017-10-19 18:48] LABS: ALANINE AMINOTRANSFERASE 26 Units/L (12-78); ALBUMIN 4.2 g/dL (3.4-5.0); ALKALINE PHOSPHATASE 129 Units/L (46-116); ASPARTATE AMINO TRANSFERASE 12 Units/L (15-37); BLOOD UREA NITROGEN 13 mg/dL (7-18); CALCIUM 9.2 mg/dL (8.5-10.1); CARBON DIOXIDE 26.6 mmol/L (21-32); CHLORIDE 100 mmol/L (98-107); COR NA(FOR HYPERGLY) 141 mmol/L (136-145); CREATININE 1.03 mg/dL (0.55-1.02); FREE T4 (FREE THYROXINE) 0.97 ng/dL (0.76-1.46); SODIUM 137 mmol/L (136-145); TOTAL PROTEIN 8.6 g/dL (6.4-8.2); eGFR NON BLACK RACES > 60 (>60)
[2017-10-19 18:49] LABS: ABG BASE EXCESS -0.7 mmol/L (-2.0-2.0); ABG HCO3 23.2 mmol/L (22-26)
[2017-10-19] MEDS: PULMICORT NEB TX 0.5 MG NEB SCH ×2 (18:54→20:20)
[2017-10-19 19:47] LABS: BILIRUBIN,URINE NEGATIVE (NEGATIVE); BLOOD/HEMOGLOBIN,URINE 1+ (NEGATIVE); GLUCOSE, URINE 4+ (NEGATIVE); KETONES,URINE NEGATIVE (NEGATIVE); LEUKOCYTE ESTERASE ,URINE 3+ (NEGATIVE); NITRITES,URINE NEGATIVE (NEGATIVE); PROTEIN,URINE 1+ (NEGATIVE); UROBILINOGEN,URINE NORMAL (NORMAL)
[2017-10-19 19:51] LABS: APPEARANCE,URINE CLOUDY (CLEAR); COLOR,URINE YELLOW (YELLOW)
[2017-10-19 19:55] LABS: BACTERIA,URINE 1+ /HPF (NEGATIVE); SQUAMOUS EPITHELIAL CELL,UR MANY /HPF (NEGATIVE)
[2017-10-19] MEDS ORDERED: ALLEGRA ONE (19:59)
[2017-10-19] MEDS: FLONASE NASAL SPRAY ENOSTRIL SCH (20:06)
[2017-10-19] MEDS: ALLEGRA PO SCH (20:06)
[2017-10-19] MEDS: TUSSIONEX PENNKINETIC SUSP PO PRN (20:07)
[2017-10-19] MEDS: SNACK - Diabetic Appropriate PO SCH (20:07)
[2017-10-19] MEDS: DUONEB 0.5 MG/3 MG NEB PRN (20:19)
[2017-10-19] MEDS: HumuLIN R SUBCUT PRN (20:37)
[2017-10-19] MEDS: ZITHROMAX INJ 500 MG VIAL 500 MG in NS 250 ML IV 250 ML IV SCH (21:30)
[2017-10-20] MEDS: HumuLIN R SUBCUT PRN ×4 (05:40→21:27)
[2017-10-20] MEDS: NS 1000 ML 1,000 ML IV SCH ×2 (05:59→22:42)
[2017-10-20] MEDS: PULMICORT NEB TX 0.5 MG NEB SCH ×2 (08:00→20:08)
[2017-10-20] MEDS ORDERED: ALLEGRA ONE (08:49)
[2017-10-20] MEDS: ZITHROMAX INJ 500 MG VIAL 500 MG in NS 250 ML IV 250 ML IV SCH (08:54)
[2017-10-20] MEDS: FLONASE NASAL SPRAY ENOSTRIL SCH (08:54)
[2017-10-20] MEDS: ALLEGRA PO SCH (08:54)
[2017-10-20] MEDS: TUSSIONEX PENNKINETIC SUSP PO PRN ×2 (08:55→21:00)
[2017-10-20] MEDS: PROTONIX TAB 40 MG PO SCH ×2 (10:30→21:18)
[2017-10-20] MEDS: PATIENT'S HOME MEDICATION (Bupropion Hcl [Bupropion Hcl] 1 TAB) PO SCH (10:30)
[2017-10-20] MEDS: DUONEB 0.5 MG/3 MG NEB PRN (20:08)
[2017-10-20] MEDS ORDERED: GLUCOPHAGE ONE (20:25)
[2017-10-20] MEDS: SNACK - Diabetic Appropriate PO SCH (21:17)
[2017-10-20] MEDS: GLUCOPHAGE PO SCH (21:17)
[2017-10-21 04:36] VITALS: BMI 21.9
[2017-10-21 06:01] LABS: BASOPHILS # (AUTO) 0.1 X10^3/uL (0.0-0.1); BASOPHILS % (AUTO) 0.8 % (0.2-1.0); EOSINOPHILS # (AUTO) 0.2 x10^3/uL (0.0-0.2); EOSINOPHILS % (AUTO) 2.2 % (0.9-2.9); LYMPHOCYTES # (AUTO) 3.1 X10^3/uL (1.3-2.9); MEAN CORPUSCULAR HEMOGLOBIN 29.2 pg (27.0-34.0); MEAN CORPUSCULAR HGB CONC 34.1 g/dL (33.0-35.0); MEAN CORPUSCULAR VOLUME 85.8 fL (80.0-100.0); MEAN PLATELET VOLUME 9.3 fL (7.4-11.0); MONOCYTES # (AUTO) 0.4 x10^3/uL (0.3-0.8); MONOCYTES % (AUTO) 4.8 % (0.0-13.0); NEUTROPHILS % (AUTO) 57.2 % (42.0-75.0); PLATELET COUNT 231 X10^3/uL (150.0-450.0); RED BLOOD COUNT 4.31 X10^6/uL (3.5-5.4); RED CELL DISTRIBUTION WIDTH 13.4 % (11.6-16.5); WHITE BLOOD COUNT 8.8 X10^3/uL (3.6-10.0)
[2017-10-21] MEDS ORDERED: TYLENOL 325 MG TAB PO PRN (06:12)
[2017-10-21 06:32] LABS: HEMOGLOBIN 12.6 g/dL (12.0-16.0)
[2017-10-21 06:34] LABS: ALANINE AMINOTRANSFERASE 22 Units/L (12-78); ALBUMIN 3.1 g/dL (3.4-5.0); ALKALINE PHOSPHATASE 91 Units/L (46-116); ASPARTATE AMINO TRANSFERASE 13 Units/L (15-37); BLOOD UREA NITROGEN 10 mg/dL (7-18); CALCIUM 8.2 mg/dL (8.5-10.1); CARBON DIOXIDE 27.7 mmol/L (21-32); CHLORIDE 106 mmol/L (98-107); COR CA(FOR HYPOALB) 8.9 mg/dL (8.5-10.1); COR NA(FOR HYPERGLY) 141 mmol/L (136-145); CREATININE 0.86 mg/dL (0.55-1.02); SODIUM 139 mmol/L (136-145); TOTAL PROTEIN 6.5 g/dL (6.4-8.2); eGFR NON BLACK RACES > 60 (>60)
[2017-10-21] MEDS ORDERED: GLUCOPHAGE ONE (07:48)
[2017-10-21] MEDS ORDERED: ALLEGRA ONE (07:48)
[2017-10-21] MEDS: TUSSIONEX PENNKINETIC SUSP PO PRN (08:09)
[2017-10-21] MEDS: FLONASE NASAL SPRAY ENOSTRIL SCH (08:09)
[2017-10-21] MEDS: PROTONIX TAB 40 MG PO SCH (08:09)
[2017-10-21] MEDS: ALLEGRA PO SCH (08:09)
[2017-10-21] MEDS: ZITHROMAX INJ 500 MG VIAL 500 MG in NS 250 ML IV 250 ML IV SCH (08:09)
[2017-10-21] MEDS: GLUCOPHAGE PO SCH (08:09)
[2017-10-21] MEDS: PATIENT'S HOME MEDICATION (Bupropion Hcl [Bupropion Hcl] 1 TAB) PO SCH (08:09)
[2017-10-21] MEDS: PULMICORT NEB TX 0.5 MG NEB SCH (09:09)
[2017-10-21] MEDS: DUONEB 0.5 MG/3 MG NEB PRN (09:09)
[2017-10-21 11:35] VITALS: BP 117/77
== END 2017-10-21 12:10 | disposition home or self-care (01) | DRG 203 ==
LOC: MED/SURG 17:57
PROVIDERS: ADMIT Internal Medicine; ATTEND Internal Medicine
DX: J20.8 Acute bronchitis due to other specified organisms; R50.9 Fever, unspecified; E03.8 Other specified hypothyroidism; M13.80 Other specified arthritis, unspecified site; K21.9 Gastro-esophageal reflux disease without esophagitis; F41.8 Other specified anxiety disorders; E11.65 Type 2 diabetes mellitus with hyperglycemia; R11.0 Nausea; R51 Headache
CPT/HCPCS: 36415; 36600; 71010; 71045; 80053; 81001; 82009; 82803; 84439; 84443; 84481; 85025; 87086; 93005; 93010; 94640; 94760; A4222; J0456; J1815; J3490; J7030; J7050; J7620; J7626